=== PATIENT | female | born 1940 | race Caucasian/White ===

== ENCOUNTER 2016-12-05 13:10 | Emergency (ER) | payer MEDICARE, OTHER ==
[~2016-12-05 13:10] MED LIST: ASPIR-LOW81 MG PO; BENADRYL 25MG C25 MG PO; CATAPRES 0.1MG0.1 MG PO; CIPRO500 MG PO; COLACE 100MG C100 MG PO; COREG 12.5MG12.5 MG PO; FLAGYL500 MG PO; HYDRALAZINE HCL50 MG PO; IMDUR ER TAB 6060 MG PO; K-DUR TAB 20 M20 MEQ PO; LASIX 40 MG TAB40 MG PO; LOPRESSOR 25 MG25 MG PO; LORCET 5-325 M1 EACH PO; LOVASTATIN10 MG PO; METAMUCIL POWD684 GM PO; NITROSTAT 0.40.4 MG SL; PLAVIX 75 MG TA75 MG PO; POTASSIUM 25 M25 MEQ PO; PROTONIX40 MG PO; RANEXA500 MG PO; RESTORIL 30 MG30 MG PO; RESTORIL30 MG PO; SYNTHROID50 MCG PO; VITAMIN D2000 UNI1 PO; ZANTAC 150 MG150 MG PO; ZOCOR40 MG PO; ZOFRAN4 MG PO
[2016-12-05 14:26] LABS: HEMOGLOBIN 10.7 gm/dl (12.3-15.3); RED BLOOD COUNT 3.48 M/UL (4.00-5.10)
[2016-12-05 14:45] LABS: BUN/CREATININE RATIO 17 (0-10)
== END 2016-12-05 16:38 | disposition home or self-care (01) ==
LOC: ER1 13:10
PROVIDERS: Emergency Medicine
DX: H60.91 Unspecified otitis externa, right ear (principal); I20.9 Angina pectoris, unspecified; Z86.13 Personal history of malaria
CPT/HCPCS: 36415; 70450; 71010; 80053; 81001; 82550; 82553; 83874; 84484; 85025; 85610; 85730; 87086; 93005; 96374; 99284; J2405

== ENCOUNTER → 2020-07-11 | Outpatient (CLI) | payer MEDICARE, OTHER ==
[~2020-07-11] MED LIST changes: +AMOXICILLIN500 MG PO; +ATORVASTATIN CA40 MG PO; +BENZONATATE200 MG PO; +CARVEDILOL6.25 MG PO; +CLARITIN10 M2 PO; +CORTISPORIN OTI10 M1 OT; +COZAAR50 MG PO; +DECADRON6 MG PO; +FLONASE 0.05% N16 GM; +FOSAMAX70 MG PO; +IBUPROFEN400 MG PO; +IBUPROFEN600 MG PO; +KEFLEX CAP 500500 MG PO; +KEFLEX500 MG PO; +MELATONIN3 MG PO; +NIFEDIPINE ER30 M1 PO; +TEGRETOL XR100 MG PO; +TRILEPTAL600 MG PO; +TYLENOL 500 MG500 MG PO; +ULTRAM50 MG PO; +VIBRAMYCIN 100100 MG GT; +ZETIA 10 MG TAB10 MG PO; +ZOFRAN ODT 4 MG4 MG PO; +[UNRECOGNIZED DRUG - REMARK]
== END ==
LOC: KOH-I 12:09
DX: M51.36 Other intervertebral disc degeneration, lumbar region (principal); M47.816 Spondylosis without myelopathy or radiculopathy, lumbar region; M47.817 Spondylosis without myelopathy or radiculopathy, lumbosacral region
CPT/HCPCS: 72100

== ENCOUNTER 2020-07-30 05:39 | Inpatient (IN) | payer MEDICARE, OTHER ==
[~2020-07-30] VITALS: Ht 157.5 cm; Wt 63.0 kg
[~2020-07-30 05:39] MED LIST changes: -ATORVASTATIN CA40 MG PO; -CARVEDILOL6.25 MG PO; -CLARITIN10 M2 PO; -DECADRON6 MG PO; -FOSAMAX70 MG PO; -NIFEDIPINE ER30 M1 PO; -VIBRAMYCIN 100100 MG GT; -[UNRECOGNIZED DRUG - REMARK]
[2020-07-30 05:58] LABS: HEMOGLOBIN 11.6 gm/dl (12.3-15.3); RED BLOOD COUNT 3.5 M/UL (4.00-5.10); WHITE BLOOD COUNT 3.3 K/UL (4.5-11.0)
[2020-07-30 06:36] LABS: BUN/CREATININE RATIO 21 (0-10)
[2020-07-30] MEDS ORDERED: CLARITIN10 M2 PO (20:48)
[2020-07-30] MEDS ORDERED: NIFEDIPINE ER30 M1 PO (20:50)
[2020-07-30] MEDS ORDERED: CATAPRES 0.1MG0.1 MG PO (20:50)
[2020-07-30] MEDS ORDERED: FOSAMAX70 MG PO (20:51)
[2020-07-31] MEDS ORDERED: ZOFRAN4 MG PO (01:46)
[2020-08-01 03:17] LABS: BUN/CREATININE RATIO 24 (0-10)
[2020-08-02] MEDS ORDERED: ATORVASTATIN CA40 MG PO (09:38)
[2020-08-02] MEDS ORDERED: CARVEDILOL6.25 MG PO (09:38)
== END 2020-08-02 11:31 | disposition home health service (06) | DRG 305 ==
LOC: ER1 05:39 → CDU 06:14 → PROG CARE 20:37
PROVIDERS: Emergency Medicine; Internal Medicine Cardiovascular Disease; ADMIT Internal Medicine
PROC: B24BZZZ Ultrasonography of Heart with Aorta (ICD-10-PCS; principal; 2020-07-30)
DX: I16.0 Hypertensive urgency (principal); I50.32 Chronic diastolic (congestive) heart failure; R07.9 Chest pain, unspecified; Z20.822 Contact with and (suspected) exposure to COVID-19; I25.10 Atherosclerotic heart disease of native coronary artery without angina pectoris; K21.9 Gastro-esophageal reflux disease without esophagitis; G50.0 Trigeminal neuralgia; F41.9 Anxiety disorder, unspecified; I27.20 Pulmonary hypertension, unspecified; I11.0 Hypertensive heart disease with heart failure; R10.9 Unspecified abdominal pain; E78.5 Hyperlipidemia, unspecified; E03.9 Hypothyroidism, unspecified; M19.90 Unspecified osteoarthritis, unspecified site; Z90.49 Acquired absence of other specified parts of digestive tract; Z95.5 Presence of coronary angioplasty implant and graft; Z90.710 Acquired absence of both cervix and uterus; Z88.5 Allergy status to narcotic agent; Z86.73 Personal history of transient ischemic attack (TIA), and cerebral infarction without residual deficits; Z88.8 Allergy status to other drugs, medicaments and biological substances; Z91.041 Radiographic dye allergy status; Z82.49 Family history of ischemic heart disease and other diseases of the circulatory system; Z79.82 Long term (current) use of aspirin; Z79.890 Hormone replacement therapy; Z79.899 Other long term (current) drug therapy
CPT/HCPCS: ECHO; 36415; 71045; 71275; 80048; 80053; 81001; 82550; 82553; 83690; 84484; 85025; 85379; 85610; 85730; 93005; 93306; 96374; 96375; 99285; J2405; J2920; Q9967; U0002

== ENCOUNTER 2020-08-12 23:07 | Emergency (ER) | payer MEDICARE, OTHER ==
[~2020-08-12 23:07] MED LIST changes: +ATORVASTATIN CA40 MG PO; +CARVEDILOL6.25 MG PO; +CLARITIN10 M2 PO; +FOSAMAX70 MG PO; +NIFEDIPINE ER30 M1 PO
[2020-08-13 00:24] LABS: HEMOGLOBIN 10.9 gm/dl (12.3-15.3); RED BLOOD COUNT 3.4 M/UL (4.00-5.10); WHITE BLOOD COUNT 2.5 K/UL (4.5-11.0)
[2020-08-13 00:51] LABS: BUN/CREATININE RATIO 11 (0-10)
[2020-08-13 03:06] LABS: BUN/CREATININE RATIO 14 (0-10)
[2020-08-13] MEDS ORDERED: VIBRAMYCIN 100100 MG GT (04:19)
[2020-08-13] MEDS ORDERED: DECADRON6 MG PO (04:19)
[2020-08-13] MEDS ORDERED: [UNRECOGNIZED DRUG - REMARK] (04:30)
== END 2020-08-13 05:15 | disposition home or self-care (01) ==
LOC: ER1 23:07
PROVIDERS: Family Medicine
DX: U07.1 COVID-19 (principal); I10 Essential (primary) hypertension; Z90.710 Acquired absence of both cervix and uterus; E87.6 Hypokalemia; Z23 Encounter for immunization
CPT/HCPCS: 36415; 71045; 80048; 80053; 82550; 82553; 83615; 83735; 83874; 84484; 85025; 86140; 93005; 99285; M0239

== ENCOUNTER 2020-11-01 15:38 | Emergency (ER) | payer MEDICARE ==
[~2020-11-01 15:38] MED LIST changes: +DECADRON6 MG PO; +VIBRAMYCIN 100100 MG GT; +[UNRECOGNIZED DRUG - REMARK]
[2020-11-01 17:12] LABS: HEMOGLOBIN 10.9 gm/dl (12.3-15.3); RED BLOOD COUNT 3.25 M/UL (4.00-5.10); WHITE BLOOD COUNT 2.8 K/UL (4.5-11.0)
[2020-11-01 17:31] LABS: BUN/CREATININE RATIO 15 (0-10)
== END 2020-11-01 20:39 | disposition home or self-care (01) ==
LOC: ER1 15:38
PROVIDERS: Emergency Medicine
DX: R10.9 Unspecified abdominal pain (principal); M25.551 Pain in right hip; I25.10 Atherosclerotic heart disease of native coronary artery without angina pectoris; I10 Essential (primary) hypertension; Z91.041 Radiographic dye allergy status; Z87.440 Personal history of urinary (tract) infections
CPT/HCPCS: 73700; 80053; 81001; 82550; 82553; 83690; 83874; 84484; 85025; 87077; 87086; 87186; 99284

== ENCOUNTER → 2021-05-08 | Outpatient (CLI) | payer MEDICARE, OTHER ==
[~2021-05-08] MED LIST changes: +CARBATROL200 MG PO; +CARVEDILOL12.5 MG PO; +COLACE100 MG PO; +FAMOTIDINE40 MG PO; +FERROUS SULFAT325 MG PO; +K-TAB ER20 MEQ PO; +LASIX40 MG PO; +LOSARTAN POTASS50 MG PO; +PROCARDIA XL60 MG PO; +PROTONIX 40 MG40 M1 PO; +VITAMIN B-121000 MC3 PO; +VITAMIN C500 MG PO
== END ==
LOC: KOH-I 11:08
DX: M25.552 Pain in left hip (principal); M16.12 Unilateral primary osteoarthritis, left hip
CPT/HCPCS: 73502

== ENCOUNTER 2021-06-08 17:48 | Emergency (ER) | payer MEDICARE, OTHER ==
[2021-06-08 19:43] LABS: HEMOGLOBIN 9.9 gm/dl (12.3-15.3); RED BLOOD COUNT 3.09 M/UL (4.00-5.10); WHITE BLOOD COUNT 2.9 K/UL (4.5-11.0)
[2021-06-08 20:03] LABS: BUN/CREATININE RATIO 15 (0-10)
== END 2021-06-08 22:49 | disposition home or self-care (01) ==
LOC: ER1 17:48
PROVIDERS: Family Medicine
DX: I10 Essential (primary) hypertension (principal); D61.818 Other pancytopenia; I25.2 Old myocardial infarction
CPT/HCPCS: 70450; 71045; 80053; 82550; 82553; 83874; 84484; 85025; 93005; 99283

== ENCOUNTER 2021-08-04 21:52 | Inpatient (IN) | payer MEDICARE, OTHER ==
[~2021-08-04] VITALS: Ht 154.9 cm; Wt 61.2 kg
[~2021-08-04 21:52] MED LIST changes: -CLARITIN10 M2 PO; +CLARITIN10 MG PO; -COLACE100 MG PO; -IMDUR ER TAB 6060 MG PO; +ISOSORBIDE MON120 MG PO; +SENNA8.6 MG PO; -VITAMIN B-121000 MC3 PO; -ZETIA 10 MG TAB10 MG PO; +ZETIA10 MG PO; +[UNRECOGNIZED DRUG - CODE] PO
[2021-08-04 22:32] LABS: HEMOGLOBIN 11.1 gm/dl (12.3-15.3); RED BLOOD COUNT 3.37 M/UL (4.00-5.10); WHITE BLOOD COUNT 3.6 K/UL (4.5-11.0)
[2021-08-04 22:59] LABS: BUN/CREATININE RATIO 17 (0-10)
[2021-08-05] MEDS ORDERED: TRAMADOL HCL50 MG PO (09:51)
[2021-08-05] MEDS ORDERED: VITAMIN D350 MCG PO (09:52)
[2021-08-05] MEDS ORDERED: BIOFREEZE89 ML TOP (09:52)
[2021-08-06 03:30] LABS: HEMOGLOBIN 11.8 gm/dl (12.3-15.3); RED BLOOD COUNT 3.62 M/UL (4.00-5.10); WHITE BLOOD COUNT 3.9 K/UL (4.5-11.0)
[2021-08-08 06:28] LABS: BUN/CREATININE RATIO 27 (0-10)
[2021-08-11 05:03] LABS: RED BLOOD COUNT 3.41 M/UL (4.00-5.10); WHITE BLOOD COUNT 3.4 K/UL (4.5-11.0)
[2021-08-11 05:23] LABS: BUN/CREATININE RATIO 30 (0-10)
[2021-08-12] MEDS ORDERED: ALPRAZOLAM0.5 MG PO ×2 (12:28)
[2021-08-12] MEDS ORDERED: CLOPIDOGREL75 MG PO (12:28)
[2021-08-12] MEDS ORDERED: ATORVASTATIN CA20 MG PO (12:28)
[2021-08-13 09:47] LABS: HEMOGLOBIN 11.2 gm/dl (12.3-15.3); RED BLOOD COUNT 3.46 M/UL (4.00-5.10); WHITE BLOOD COUNT 3.8 K/UL (4.5-11.0)
[2021-08-13 10:25] LABS: BUN/CREATININE RATIO 22 (0-10)
--- NOTE | 2021-08-13 10:47 | NUR ---
PROVIDER MADE AWARE OF K OF 3.3 AT THIS TIME. NEW ORDERS GIVEN. STATES TO STILL SEND PATIENT WITHOUT RECHECK.
--- NOTE | 2021-08-13 11:27 | NUR ---
REPORT CALLED TO MARIA GUADALUPE AT THIS TIME AND GIVEN TO KESHIA JOLLY .
--- NOTE | 2021-08-13 11:51 | NUR ---
SCHEDULED AMBULANCE TRANSPORT FOR PATIENT AT THIS TIME.
== END 2021-08-13 14:40 | disposition swing bed (61) | DRG 65 ==
LOC: ER1 21:52 → MED SURG 4 08-05 00:27 → CDU 08-05 00:27 → MED SURG 4 08-05 19:28
PROVIDERS: Internal Medicine; Internal Medicine Infectious Disease; Physician Assistant; ADMIT Internal Medicine
DX: I63.9 Cerebral infarction, unspecified (principal); G81.92 Hemiplegia, unspecified affecting left dominant side; I25.10 Atherosclerotic heart disease of native coronary artery without angina pectoris; Z20.822 Contact with and (suspected) exposure to COVID-19; I10 Essential (primary) hypertension; K21.9 Gastro-esophageal reflux disease without esophagitis; E03.9 Hypothyroidism, unspecified; I16.0 Hypertensive urgency; F41.0 Panic disorder [episodic paroxysmal anxiety]; E78.5 Hyperlipidemia, unspecified; R29.810 Facial weakness; E87.6 Hypokalemia; R13.12 Dysphagia, oropharyngeal phase; G50.0 Trigeminal neuralgia; Z95.1 Presence of aortocoronary bypass graft; Z79.899 Other long term (current) drug therapy; Z79.82 Long term (current) use of aspirin; Z91.041 Radiographic dye allergy status; Z82.49 Family history of ischemic heart disease and other diseases of the circulatory system; I69.391 Dysphagia following cerebral infarction; I69.392 Facial weakness following cerebral infarction
CPT/HCPCS: 36415; 70450; 70551; 71045; 74230; 80048; 80053; 80061; 81001; 82533; 82550; 82553; 83036; 83874; 83880; 84439; 84443; 84484; 85025; 85610; 85730; 92507; 92526; 92610; 92611-GN; 93005; 93880; 96372; 96374; 96375; 96376; 97110; 97110-GP-CQ; 97112; 97161; 97165; 97530; 97530-GP-CQ; 99285; G0378; J0360; J1650; J2060; J2550; U0002

== ENCOUNTER 2021-11-24 17:09 | Emergency (ER) | payer MEDICARE ==
[~2021-11-24 17:09] MED LIST changes: +ALPRAZOLAM0.5 MG PO; +ATORVASTATIN CA20 MG PO; +BIOFREEZE89 ML TOP; +CLOPIDOGREL75 MG PO; +TRAMADOL HCL50 MG PO; +VITAMIN D350 MCG PO
[2021-11-24 19:57] LABS: HEMOGLOBIN 11.3 gm/dl (12.3-15.3); RED BLOOD COUNT 3.45 M/UL (4.00-5.10); WHITE BLOOD COUNT 4.3 K/UL (4.5-11.0)
[2021-11-24 20:18] LABS: BUN/CREATININE RATIO 19 (0-10)
== END 2021-11-24 21:49 | disposition home or self-care (01) ==
LOC: ER1 17:09
PROVIDERS: Student in an Organized Health Care Education/Training Program
DX: I10 Essential (primary) hypertension (principal); I25.10 Atherosclerotic heart disease of native coronary artery without angina pectoris; Z86.73 Personal history of transient ischemic attack (TIA), and cerebral infarction without residual deficits; E78.5 Hyperlipidemia, unspecified; K21.9 Gastro-esophageal reflux disease without esophagitis; Z91.041 Radiographic dye allergy status
CPT/HCPCS: 70450; 71045; 80053; 82550; 82553; 84484; 85025; 93005; 99285

== ENCOUNTER 2022-02-01 08:54 | Observation (INO) | payer MEDICARE, OTHER ==
[~2022-02-01] VITALS: Ht 154.9 cm; Wt 58.5 kg
[~2022-02-01 08:54] MED LIST changes: +CEFUROXIME250 MG PO; +CLONIDINE1 EAC2 TD; +HYDROXYZINE PAM25 MG PO; +ISOSORBIDE MONO30 MG PO; +MELATONIN5 M2 PO; -PROCARDIA XL60 MG PO; +PROCARDIA XL90 MG PO; +SPIRONOLACTONE25 MG PO; +VITAMIN B-121000 MCG PO; +VITAMIN D21250 MCG PO; -VITAMIN D350 MCG PO; -[UNRECOGNIZED DRUG - CODE] PO
[2022-02-01 10:59] LABS: HEMOGLOBIN 11.1 gm/dl (12.3-15.3); RED BLOOD COUNT 3.45 M/UL (4.00-5.10); WHITE BLOOD COUNT 4.4 K/UL (4.5-11.0)
[2022-02-01 11:49] LABS: BUN/CREATININE RATIO 18 (0-10)
[2022-02-01] MEDS ORDERED: ESCITALOPRAM OXA5 MG PO (15:41)
[2022-02-02 02:25] LABS: HEMOGLOBIN 10.6 gm/dl (12.3-15.3); RED BLOOD COUNT 3.23 M/UL (4.00-5.10); WHITE BLOOD COUNT 4.5 K/UL (4.5-11.0)
[2022-02-02 02:53] LABS: BUN/CREATININE RATIO 19 (0-10)
[2022-02-02] MEDS ORDERED: AMLODIPINE BESYL5 MG PO (12:43)
[2022-02-02] MEDS ORDERED: LEVOFLOXACIN500 MG PO (13:28)
[2022-02-02] MEDS ORDERED: LEVOTHYROXINE125 MCG PO (13:52)
== END 2022-02-02 17:30 | disposition home or self-care (01) ==
LOC: ER1 08:54 → M/S 14:02 → CDU 14:02 → M/S 16:52
PROVIDERS: Physician Assistant; Physician Assistant Medical; ADMIT Internal Medicine
DX: I16.0 Hypertensive urgency (principal); Z20.822 Contact with and (suspected) exposure to COVID-19; I25.10 Atherosclerotic heart disease of native coronary artery without angina pectoris; E78.5 Hyperlipidemia, unspecified; R55 Syncope and collapse; E03.9 Hypothyroidism, unspecified; I10 Essential (primary) hypertension; K21.9 Gastro-esophageal reflux disease without esophagitis; D64.9 Anemia, unspecified; I27.20 Pulmonary hypertension, unspecified; Z79.02 Long term (current) use of antithrombotics/antiplatelets; Z79.899 Other long term (current) drug therapy; Z86.73 Personal history of transient ischemic attack (TIA), and cerebral infarction without residual deficits; Z88.5 Allergy status to narcotic agent; Z91.041 Radiographic dye allergy status; Z95.5 Presence of coronary angioplasty implant and graft
CPT/HCPCS: 70450; 71045; 80053; 81001; 82550; 82553; 83735; 84439; 84443; 84484; 85025; 93005; 96374; 96375; 97161; 99285; G0378; J0360; J2405; Q0177; U0002

== ENCOUNTER 2022-02-28 00:27 | Observation (INO) | payer MEDICARE, OTHER ==
[~2022-02-28] VITALS: Ht 154.9 cm; Wt 59.0 kg
[~2022-02-28 00:27] MED LIST changes: +AMLODIPINE BESYL5 MG PO; +ESCITALOPRAM OXA5 MG PO; +LEVOFLOXACIN500 MG PO; +LEVOTHYROXINE125 MCG PO
[2022-02-28 01:10] LABS: HEMOGLOBIN 11.9 gm/dl (12.3-15.3); RED BLOOD COUNT 3.68 M/UL (4.00-5.10); WHITE BLOOD COUNT 3.2 K/UL (4.5-11.0)
[2022-02-28 01:49] LABS: BUN/CREATININE RATIO 19 (0-10)
[2022-02-28] MEDS ORDERED: LEVOTHYROXINE125 MCG PO (10:24)
[2022-02-28] MEDS ORDERED: HYDROXYZINE PAM25 MG PO (10:26)
[2022-02-28] MEDS ORDERED: FUROSEMIDE40 MG PO (10:28)
[2022-02-28] MEDS ORDERED: POTASSIUM CHLO20 ME2 PO (10:35)
[2022-02-28] MEDS ORDERED: CLONIDINE HCL0.1 MG PO (10:36)
[2022-02-28] MEDS ORDERED: MELATONIN5 M2 PO (10:37)
[2022-03-01 05:42] LABS: HEMOGLOBIN 10.2 gm/dl (12.3-15.3); WHITE BLOOD COUNT 2.9 K/UL (4.5-11.0)
[2022-03-01 05:45] LABS: RED BLOOD COUNT 3.16 M/UL (4.00-5.10)
[2022-03-01 06:45] LABS: BUN/CREATININE RATIO 20 (0-10)
[2022-03-02 06:40] LABS: HEMOGLOBIN 9.4 gm/dl (12.3-15.3); RED BLOOD COUNT 2.94 M/UL (4.00-5.10); WHITE BLOOD COUNT 2.8 K/UL (4.5-11.0)
[2022-03-02 07:01] LABS: BUN/CREATININE RATIO 24 (0-10)
[2022-03-02] MEDS ORDERED: NORVASC10 MG PO (13:47)
[2022-03-02] MEDS ORDERED: ZESTRIL20 MG PO (13:48)
[2022-03-02] MEDS ORDERED: HYDRALAZINE HCL25 MG PO ×2 (14:49→15:42)
[2022-03-02] MEDS ORDERED: HYDRALAZINE HCL50 MG PO ×2 (15:24→15:51)
[2022-03-02] MEDS ORDERED: ISOSORBIDE MONO30 MG PO (15:29)
== END 2022-03-02 17:58 | disposition home health service (06) ==
LOC: ER1 00:27 → CDU 04:15 → MED SURG 4 04:15 → CDU 04:15 → MED SURG 4 06:53
PROVIDERS: Family Medicine; Internal Medicine; ADMIT Internal Medicine
DX: I16.0 Hypertensive urgency (principal); I25.10 Atherosclerotic heart disease of native coronary artery without angina pectoris; I69.354 Hemiplegia and hemiparesis following cerebral infarction affecting left non-dominant side; F41.9 Anxiety disorder, unspecified; K21.9 Gastro-esophageal reflux disease without esophagitis; I10 Essential (primary) hypertension; D61.818 Other pancytopenia; D64.9 Anemia, unspecified; E03.9 Hypothyroidism, unspecified; K59.09 Other constipation; K57.90 Diverticulosis of intestine, part unspecified, without perforation or abscess without bleeding; M19.90 Unspecified osteoarthritis, unspecified site; Z79.02 Long term (current) use of antithrombotics/antiplatelets; Z79.890 Hormone replacement therapy; Z79.899 Other long term (current) drug therapy; Z88.5 Allergy status to narcotic agent; Z88.8 Allergy status to other drugs, medicaments and biological substances; Z91.041 Radiographic dye allergy status; Z95.5 Presence of coronary angioplasty implant and graft
CPT/HCPCS: 36415; 70450; 71045; 80048; 80053; 80061; 82550; 82553; 82607; 83036; 83735; 83880; 84100; 84132; 84484; 85025; 85610; 93005; 96372; 96374; 97161; 97165; 99285; G0378; J1650; Q0177

== ENCOUNTER → 2022-03-10 | Outpatient (CLI) | payer MEDICARE, OTHER ==
[~2022-03-10] MED LIST changes: +CLONIDINE HCL0.1 MG PO; +FUROSEMIDE40 MG PO; +HYDRALAZINE HCL25 MG PO; +NORVASC10 MG PO; +POTASSIUM CHLO20 ME2 PO; +ZESTRIL20 MG PO
[2022-03-10 16:37] LABS: HEMOGLOBIN 10.5 gm/dl (12.3-15.3); RED BLOOD COUNT 3.24 M/UL (4.00-5.10); WHITE BLOOD COUNT 3.9 K/UL (4.5-11.0)
[2022-03-10 17:01] LABS: BUN/CREATININE RATIO 22 (0-10)
== END ==
LOC: LAB 16:07
PROVIDERS: Internal Medicine
DX: D61.818 Other pancytopenia (principal); I16.0 Hypertensive urgency; E03.9 Hypothyroidism, unspecified
CPT/HCPCS: 36415; 80053; 84439; 84443; 85025